=== PATIENT | male | born 1965 | race Two or more races ===

== ENCOUNTER → 2021-02-09 09:17 | Outpatient (BNVA) | payer OTHER, SELFPAY | PROVIDERS: PCP Internal Medicine; Visit Provider Physician Assistant Medical | DX: S39.012A Strain of muscle, fascia and tendon of lower back, initial encounter (principal); S29.012A Strain of muscle and tendon of back wall of thorax, initial encounter; X50.0XXA Overexertion from strenuous movement or load, initial encounter | CPT/HCPCS: 99203 ==

== ENCOUNTER → 2021-02-18 09:48 | Outpatient (BNVA) | payer OTHER, SELFPAY | PROVIDERS: PCP Internal Medicine; Visit Provider Physician Assistant | DX: S39.012D Strain of muscle, fascia and tendon of lower back, subsequent encounter (principal); S29.012D Strain of muscle and tendon of back wall of thorax, subsequent encounter; X58.XXXD Exposure to other specified factors, subsequent encounter | CPT/HCPCS: 99213 ==

== ENCOUNTER 2021-03-07 12:00 | Outpatient (RCR) | payer OTHER, SELFPAY ==
--- NOTE | 2021-02-23 10:52 | MHC.PT.EP ---
[facility] [place] Office [place] Office [address] Lucio Mclean [address] [phone] F: [phone] F: [phone] F: [phone] F: [phone] Physical Therapy Plan of Care Date of Evaluation: Date of Surgery: N/A Diagnosis: lumbar strain Assessment: pt's signs and symptoms consistent w/ lumbar radiculopathy. pt presents to physical therapy with pain, decreased range of motion, decreased strength, impaired functional mobility, impaired postural awareness, and gait deviations. pt is a good candidate for skilled PT due to age, potential remediation of impairments, typical disease/condition progression and prognosis, comorbidities, and motivation. pt would benefit from tailored strengthening and stretching exercise program, functional training, gait training, postural re-training, neuromuscular re-education, modalities as needed for pain, equipment safety demonstration. Frequency and Duration: The patient will be seen 2x/wk for 5 wks Short Term Goals: pt will be I w/ HEP to promote self-management of condition. pt will demo proper sitting posture w/ lumbar roll to promote neutral spine w/ seated ADLs. pt will improve lumbar extension to 100% to improve lifting and reaching overhead activities at work. Installation Drafter Goals: pt will demo proper lifting mechanics from floor to overhead x5 reps w/ 30# object to promote pain-free return to lifting. pt will report <2/10 low back pain w/ seated ADLs to promote return to PLOF. Treatment Plan: Modalities to reduce pain, spasms and effusion. Manual therapy to restore motion and function. Therapeutic exercise to improve strength and flexibility. Neuromuscular re-education for posture and balance. Therapeutic activities to return to functional activities of daily living. Electronically signed by: Fiona Collier PT, DPT Please sign and return to therapist. Thank you for your referral.
--- NOTE | 2021-03-14 17:58 | MHC.PT.DC ---
[facility] [place] Office [place] Office [place] Office [address]clean [address] [phone] F: [phone] F: [phone] F: [phone] F: [phone] Physical Therapy Discharge Report Diagnosis: lumbar strain Date of Surgery: N/A Date of Evaluation: 02/23/21 Date of Discharge: 03/14/21 Treatments to Date: 3 Cancellations to Date: 0 No Shows to Date: 2 Discharge Status: Improved Function Independent with HEP Visit Non-compliance Discharge Summary: The patient has been reporting a significant improvement of back pain and radicular pain with repeated extensions. He has no showed two appointments. Per [facility] policy he is discharged from this physical therapy plan of care due to visit non-compliance. Electronically signed by: Fiona Collier PT, DPT Please sign and return to therapist. Thank you for your referral.
== END 2021-03-14 17:58 | disposition home or self-care (01) ==
LOC: HO.PT 12:00
PROVIDERS: Visit Provider Physician Assistant
DX: M54.9 Dorsalgia, unspecified (principal)
CPT/HCPCS: 97110; 97112; 97162

== ENCOUNTER 2021-04-07 10:00 | Outpatient (RCR) | payer OTHER, SELFPAY ==
--- NOTE | 2021-04-21 11:31 | MHC.PT.DC ---
[facility] [place] Office [place] Office [place] Office [address] Mclean [address] [phone] F: [phone] F: [phone] F: [phone] F: [phone] Physical Therapy Discharge Report Diagnosis: lumbar strain Date of Surgery: N/A Date of Evaluation: 02/23/21 Date of Discharge: 04/21/21 Treatments to Date: 9 Cancellations to Date: 7 No Shows to Date: 2 Discharge Status: Improved Function Independent with HEP Discharge Summary: The patient has reported complete abolition of both back pain and radicular symptoms. He is independent with his home exercise program to manage these symptoms. He has achieved all goals established at the initial evaluation. He is discharged from this physical therapy plan of care to his home exercise program. Electronically signed by: Fiona Collier PT, DPT Please sign and return to therapist. Thank you for your referral.
== END 2021-04-21 11:32 | disposition home or self-care (01) ==
LOC: HO.PT 10:00
PROVIDERS: Visit Provider Physician Assistant
DX: S39.012D Strain of muscle, fascia and tendon of lower back, subsequent encounter (principal)
CPT/HCPCS: 97110; 97112

== ENCOUNTER → 2024-09-03 12:53 | Outpatient (BNVA) | payer OTHER, SELFPAY | PROVIDERS: PCP Internal Medicine; Visit Provider Physician Assistant Medical | DX: S92.902A Unspecified fracture of left foot, initial encounter for closed fracture (principal); W22.8XXA Striking against or struck by other objects, initial encounter | CPT/HCPCS: 73610; 73630; 99213 ==

== ENCOUNTER → 2024-09-09 10:50 | Outpatient (BNVA) | payer OTHER, SELFPAY | PROVIDERS: PCP Internal Medicine; Visit Provider Physician Assistant Medical | DX: S92.355A Nondisplaced fracture of fifth metatarsal bone, left foot, initial encounter for closed fracture (principal); W22.8XXA Striking against or struck by other objects, initial encounter | CPT/HCPCS: 99213 ==

== ENCOUNTER → 2024-09-16 10:49 | Outpatient (BNVA) | payer OTHER, SELFPAY | PROVIDERS: PCP Internal Medicine; Visit Provider Physician Assistant Medical | DX: S92.355D Nondisplaced fracture of fifth metatarsal bone, left foot, subsequent encounter for fracture with routine healing (principal); W22.8XXD Striking against or struck by other objects, subsequent encounter | CPT/HCPCS: 99213 ==

== ENCOUNTER 2024-09-23 10:01 | Outpatient (REF) | payer OTHER, SELFPAY ==
--- NOTE | ~2024-09-23 | XR_ITS ---
EXAMINATION: XR FOOT 3 OR MORE VIEWS LEFT HISTORY: M79.673 - Pain in unspecified foot COMPARISON: Comparison is made with the prior examination dated 09/03/2024. FINDINGS: Three views of the left foot are submitted. Osseous mineralization is normal. Again seen is a transverse fracture of the 5th metatarsal diaphysis. A small amount of callus formation is seen. The fracture line remains visible. The joint spaces are preserved. There is a plantar calcaneal spur. The soft tissues are unremarkable. XR/XR foot LT min 3V IMPRESSION: Fracture of the 5th metatarsal diaphysis without significant change. Electronically signed by: Kofi Barr MD 09/24/2024 07:33 AM EDT
== END 2024-09-23 10:02 | disposition home or self-care (01) ==
LOC: HO.HOSX 10:01
PROVIDERS: Visit Provider Physician Assistant
DX: S92.352A Displaced fracture of fifth metatarsal bone, left foot, initial encounter for closed fracture (principal); W18.40XA Slipping, tripping and stumbling without falling, unspecified, initial encounter; Y93.9 Activity, unspecified; Y92.9 Unspecified place or not applicable; Y99.0 Civilian activity done for income or pay
CPT/HCPCS: 73630; 99202

== ENCOUNTER → 2024-09-23 12:43 | Outpatient (BNV) | payer OTHER, SELFPAY | PROVIDERS: Visit Provider Radiology Diagnostic Radiology | DX: S92.352A Displaced fracture of fifth metatarsal bone, left foot, initial encounter for closed fracture (principal) | CPT/HCPCS: 73630 ==

== ENCOUNTER 2024-09-23 13:50 | Outpatient (AMB) | payer OTHER, SELFPAY ==
--- NOTE | 2024-09-23 14:04 | A.OFFVIS_ITS ---
Vital Signs 09/23/24 14:09 Height 6 ft Weight 250 lb BMI 33.9 Intake Visit Reasons: OV-Left Ankle & Foot DOI-09/03 Intake Note: Keven is a 58 year old male right hand dominate who presents today as a new patient for left ankle and left foot pain, DOI 09/03/24.Patient reported that he was walking down stairs when he hurt his left foot. Patient states that the injury occurred at work and was seen and referred from the work connection. 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 He reported that he was going down stairs and hurt is left foot. Patient states that he does have tingling in the left foot/toes. HPI HPI OV-Left Ankle & Foot DOI-09/03: Details: Mr. Kurtz is a 58-year-old male who presents to the office today accompanied by his for a left foot and ankle injury that occurred on 09/03/2024 while he was at work. He states that he was walking down some stairs and his foot slipped over the edge of a step while moving forward. He felt immediate pain and presented to the emergency department where x-rays were obtained and he was found to have a 5th metatarsal shaft fracture. He was placed into a posterior splint and instructed to follow up with orthopedics outpatient for further evaluation and treatment. 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 No ecchymosis, erythema or edema. Tenderness to palpation over the midshaft 5th metatarsal fracture. Patient is able to demonstrate full ankle dorsiflexion and plantar flexion. He has diffi culty due to pain with pronation and supination. NVI. Office Procedures AMB Fracture Care Fracture Billing Code: Fracture Billing Code Assessment & Plan Assessment & Plan (1) Fracture of fifth metatarsal bone of left foot: Code(s): S92.352A - Displaced fracture of fifth metatarsal bone, left foot, initial encounter for closed fracture Category: Medical Plan Mr. Kurtz is a 58-year-old male who presents to the office today accompanied by his for a left foot and ankle injury that occurred on 09/03/2024 while he was at work. He states that he was walking down some stairs and his foot slipped over the edge of a step while moving forward. He felt immediate pain and presented to the emergency department where x-rays were obtained and he was found to have a 5th metatarsal shaft fracture. He was placed into a posterior splint and instructed to follow up with orthopedics outpatient for further evaluation and treatment. While the office today, the patient was fit for a short walking boot off the shelf. He will wear the boot at all times while ambulating. I did encourage him to come out several times per day to work on ankle range of motion which was demonstrated to him in the office today. This is in hopes to avoid any ankle stiffness. He will remain out of work until follow up. Follow up will be in 4 weeks with repeat x-rays, sooner if needed. X-rays of the left foot which were obtained while in the office today and were reviewed by me, Yin Urrutia PA-C, revealed left 5th midshaft metatarsal fracture with interval healing. Orders: Orders XR foot LT min 3V Today M79.673 - Pain in unspecified foot Coding Level of Care Code New Pt Level 4 (75808) Diagnoses Fracture of fifth metatarsal bone of left foot S92.352A CPT Codes Fracture Care - Fracture Billing Code: Fracture Billing Code ([id number])
[2024-09-23 14:09] VITALS: BMI 33.9
== END 2024-09-23 14:45 | disposition home or self-care (01) ==
LOC: HO.HOS 13:51
PROVIDERS: PCP Internal Medicine; Visit Provider Physician Assistant
DX: S92.352A Displaced fracture of fifth metatarsal bone, left foot, initial encounter for closed fracture (principal)
CPT/HCPCS: 99203

== ENCOUNTER 2024-10-28 10:41 | Outpatient (REF) | payer OTHER, SELFPAY ==
--- NOTE | ~2024-10-28 | XR_ITS ---
EXAMINATION: XR FOOT, LEFT CLINICAL INFORMATION: M79.673 - Pain in unspecified foot COMPARISON: September 23, 2024. TECHNIQUE: AP, lateral, and oblique views of the left foot. FINDINGS: No gross callus formation in the transversely oriented fracture of the proximal diaphysis fifth metatarsal. There is a persistent 2 mm gap between the fragments. Plantar calcaneal spur. Small exostosis at the Achilles tendon torsion. Mild degenerative changes in the proximal and distal interphalangeal joints of the toes. No acute fracture. XR/XR foot LT min 3V IMPRESSION: Nonunion fracture, fifth metatarsal. Plantar calcaneal spur. Mild enthesopathy, Achilles tendon. Electronically signed by: Martinez Palma MD 10/28/2024 02:44 PM EDT
== END 2024-10-28 10:42 | disposition home or self-care (01) ==
LOC: HO.HOSX 10:41
PROVIDERS: Visit Provider Physician Assistant
DX: S92.352K Displaced fracture of fifth metatarsal bone, left foot, subsequent encounter for fracture with nonunion (principal); M79.672 Pain in left foot; W10.9XXA Fall (on) (from) unspecified stairs and steps, initial encounter; Y92.89 Other specified places as the place of occurrence of the external cause; Y93.89 Activity, other specified; Y99.8 Other external cause status
CPT/HCPCS: 73630; 99212

== ENCOUNTER 2024-10-28 14:31 | Outpatient (AMB) | payer OTHER, SELFPAY ==
--- NOTE | 2024-10-28 14:34 | MHC.OFFVIS ---
Intake Visit Reasons: OV-Left Ankle & Foot DOI-09/03 Intake Note: Keven is a 58 year old male who presents today for a follow up of his Left Ankle & Foot WC Injury. While going down the stairs on 09/13/2024 he injured his foot . He was placed in a short walking boot. He remains out of work at this time. Patient mentions that he is still having a burning sensation and his pain is worse at night when he removes the boot. Allergies Penicillins Allergy (Verified 10/28/24 14:41) Rash remicade Allergy (Uncoded 10/28/24 14:41) Fainting HPI HPI OV-Left Ankle & Foot DOI-09/03: Details: Mr. Kurtz is a 58-year-old male who presents to the office today for routine follow-up status post left 5th metatarsal shaft fracture that he sustained on 09/03/2024 while at work. 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 He has been out of work since his last appointment on 09/23/2024. Additionally, he has been in a short walking boot weight-bearing as tolerated. He reports that he has discomfort along the lateral aspect of the foot near the fracture site accompanied by a burning sensation. 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 No ecchymosis, erythema or edema. Tenderness to palpation over the midshaft 5th metatarsal fracture accompanied by a burning sensation. Patient is able to demonstrate full ankle dorsiflexion and plantar flexion without difficulty. He has difficulty due to pain associated with burning at the fracture site with pronation and supination. NVI. Assessment & Plan Assessment & Plan (1) Fracture of fifth metatarsal bone of left foot: Code(s): S92.352A - Displaced fracture of fifth metatarsal bone, left foot, initial encounter for closed fracture Category: Medical Plan Mr. Kurtz is a 58-year-old male who presents to the office today for routine follow-up status post left 5th metatarsal shaft fracture that he sustained on 09/03/2024 while at work. 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 He has been out of work since his last appointment on 09/23/2024. Additionally, he has been in a short walking boot weight-bearing as tolerated. He reports that he has discomfort along the lateral aspect of the foot near the fracture site accompanied by a burning sensation. While the office today, I have recommended that the patient discontinue the walking boot at this time and transition to a supportive walking shoe. Additionally, I placed an order for physical therapy to work with the patient on gentle range of motion and modalities. Patient will remain out of work until follow up. Patient will follow up in 4 weeks, sooner if needed. X-rays were obtained in the office today and reviewed by me, Yin Urrutia PA-C, and reveal normal bony interval healing at the 5th metatarsal shaft fracture. Orders: Orders XR foot LT min 3V Today M79.673 - Pain in unspecified foot Coding Level of Care Code Global (55156) Diagnoses Fracture of fifth metatarsal bone of left foot S92.352A
== END 2024-10-28 15:02 | disposition home or self-care (01) ==
LOC: HO.HOS 14:32
PROVIDERS: PCP Internal Medicine; Visit Provider Physician Assistant
DX: S92.352A Displaced fracture of fifth metatarsal bone, left foot, initial encounter for closed fracture (principal)
CPT/HCPCS: 99213

== ENCOUNTER → 2024-10-28 14:34 | Outpatient (BNV) | payer OTHER, SELFPAY | PROVIDERS: Visit Provider Radiology Diagnostic Radiology | DX: S92.351K Displaced fracture of fifth metatarsal bone, right foot, subsequent encounter for fracture with nonunion (principal); M77.32 Calcaneal spur, left foot | CPT/HCPCS: 73630 ==

== ENCOUNTER 2024-11-25 10:48 | Outpatient (RCR) | payer OTHER, BC, SELFPAY ==
--- NOTE | 2024-11-07 11:00 | MHC.PT.EP ---
[facility] [place] Office [place] Office [place] Office [address] Mclean [address] [phone] F: [phone] F: [phone] F: [phone] F: [phone] Physical Therapy Plan of Care Date of Evaluation: 11/07/24 Date of Surgery: Diagnosis: DISPLACED FX Lt 5TH METATARSAL BONE-> GENTLE ROM AND MODALITIES Assessment: 58 YO MALE REF TO PT S/P Lt NONUNION 5TH METATARSAL FX (9 WKS POST INJURY ON 11/05/24) SUSTAINED AT WORK ON 09/03/24- HE WAS SEEN IN ORTHO, TRANSITIONED GRAD TO WALKING BOOT, WHICH WAS WEANED 09/28/24 AND THE Pt IS NOW REF TO PT.. HE HAS BEEN OOW SINCE INJURY HIS JOB ENTAILS PHYSICALLY DEMANDING TASKS. THE Pt HAS DECR ROM Lt ANKLE, WEAK LEFT INTRINSIC MUSCLES, (+) LUMBOPELVIC ASYM CREATING LLI/ ALTERED GAIT MECH, DECR DOYLE TO PROLONGED WALKING/ STANDING/ACTIVITY DOYLE, AND FLUCTUATING SXS/ DISCOMFORT IN Lt 5TH MET AND CUBOID AREA. THE Pt IS VERY MOTIVATED FOR PT AND ULTIMATELY RTW. HE IS REF TO PT AT THIS TIME FOR GENTLE ROM AND MODALITIES. Frequency and Duration: The patient will be seen 2 x WK x 4 WKS Short Term Goals: DECR Lt LAT FOOT PAIN TO 2-3/10 W REG ADLs IMPROVE Lt ANKLE AROM INITIATE HEP-> CORE STAB, LUMBOPELVIC SYMM EFFICIENT GAIT MECHANICS LEVEL AND STAIRS Correction Goals: INDEP HEP AND SELF SX MGMT TECHN-> WFL STAB/ PROPR/ STRENGTH Lt LE Pt SLS Lt x 30 SEC IMPROVED LEFI, AT EVAL37/80 Pt RTW, CLEARED BY ORTHO Treatment Plan: Modalities to reduce pain, spasms and effusion. Manual therapy to restore motion and function. Therapeutic exercise to improve strength and flexibility. Neuromuscular re-education for posture and balance. Therapeutic activities to return to functional activities of daily living. Electronically signed by: MARIA R POPE, PT Please sign and return to therapist. Thank you for your referral.
--- NOTE | 2024-11-25 12:44 | MHC.PT.DC ---
[facility] [place] Office [place] Office [place] Office [address] Lucio Mclean [address] [phone] F: [phone] F: [phone] F: [phone] F: [phone] Physical Therapy Discharge Report Diagnosis: DISPLACED FX Lt 5TH METATARSAL BONE-> GENTLE ROM AND MODALITIES Date of Surgery: Date of Evaluation: 11/07/24 Date of Discharge: 11/25/24 Treatments to Date: 4 Cancellations to Date: 1 No Shows to Date: Discharge Status: Achieved Goals Improved Function Independent with HEP Discharge Summary: DAMI HAS MET HIS PT GOALS AT THIS TIME- HIS LEFI SCORE AT EVAL WAS 37/80 AND TODAY AT D/C, 48/80. HE DENIED ANY PAIN IN HIS Lt FOOT AND ANKLE (ONLY SXS WERE IN HIS Rt KNEE DUE TO HIS OA, PER Pt). HE IS MOTIVATED TO RTW AND IS INDEP AND COMPLIANT W HIS HEP. THE Pt MALICKON SLS Lt x 15 SEC (AT EVAL, 9 SEC) Electronically signed by: MARIA R POPE,PT Please sign and return to therapist. Thank you for your referral.
== END 2024-11-25 12:45 | disposition home or self-care (01) ==
LOC: HO.PT 10:48
PROVIDERS: Visit Provider Physician Assistant
DX: S92.352D Displaced fracture of fifth metatarsal bone, left foot, subsequent encounter for fracture with routine healing (principal)
CPT/HCPCS: 97110; 97162; 97530

== ENCOUNTER 2024-11-27 08:38 | Outpatient (REF) | payer OTHER, BC, SELFPAY ==
--- NOTE | ~2024-11-27 | XR_ITS ---
EXAMINATION: XR FOOT 3 OR MORE VIEWS LEFT HISTORY: M79.673 - Pain in unspecified foot COMPARISON: Comparison is made with the prior examination dated 10/28/2024. FINDINGS: Three views of the left foot are submitted. Osseous mineralization is normal. Again seen is a fracture of the proximal 5th metatarsal shaft. The fracture line remains visible. The joint spaces are preserved. There is a plantar calcaneal spur. The soft tissues are unremarkable. XR/XR foot LT min 3V IMPRESSION: Fracture of the proximal 5th metatarsal shaft without significant change. Electronically signed by: Kofi Barr MD 11/27/2024 01:39 PM EDT
--- OUTSIDE RECORDS SUMMARY | 2024-11-28 08:53 | XMS_ITS | Encounter Summary ---
Author Organization [facility] Address [address] [place] [address] Care Team Providers Care Chronic Condition Nurse Name Role Phone Name, Semaj BRENNER Primary Care Provider Unavailabl e Community, Pcp [facility] Encounter Details Date Type Department Care Team Description 12/09/2014 Potline Monitor Report Medical Records [address] [place] [id number] Kermit Webber MD Social History Tobacco Use Types Packs/Day Years Used Date Smoking Tobacco: Never Smokeless Tobacco: Never Alcohol Use Standard Drinks/Week Comments No 0 (1 standard drink = 0.6 oz pur e alcohol) Sex Assigned at Date Recorded Not on file documented as of this encounter Plan of Treatment Not on file documented as of this encounter Visit Diagnoses Not on filedocumented in this encounter Care Teams Chronic Condition Nurse Relationship Specialty Start Date End Date Name, MD Semaj PCP - General Internal Medicine 04/26/11 05/20/15 Community, Pcp PCP - General Internal Medicine 05/21/15 documented as of this encounter
--- OUTSIDE RECORDS SUMMARY | 2024-11-28 08:53 | XMS_ITS | Encounter Summary ---
Author Organization [facility] Address [address] [place] [address] Phone Care Team Providers Care Field Observer Name Role Phone Joe Mosquera MD Primary Care Provider U navailable Encounter Details Date Type Department Care Team (Late st Contact Info) Description 01/22/2019 Procedure Pass [facility] Endoscopy Admitting Dept Virtual Department [address] [place] [address] Social History Tobacco Use Types Packs/Day Years Used Date Smoking Tobacco: Never Alcohol Use Standard Drinks/Week Comments No 0 (1 standard drink = 0.6 oz pur e alcohol) Sex and Gender Information Value Date Recorded Sex Assigned at Male 11/11/2017 10:34 PM EDT Legal Sex Male 9:37 PM EDT Gender Identity Male 11/11/2017 10:34 PM EDT Sexual Orientation Not on file documented as of this encounter Plan of Treatment Not on file documented as of this encounter Visit Diagnoses Not on filedocumented in this encounter Care Teams Field Observer Relationship Specialty Start Date End Date Joe Mosquera MD PCP - General Internal Medicine 11/11/17 documented as of this encounter Additional Source Comments The information contained in this document represents components of the legal health record. It is not the complete legal health record.[facility]
== END 2024-11-27 08:39 | disposition home or self-care (01) ==
LOC: HO.HOSX 08:38
PROVIDERS: Visit Provider Physician Assistant
DX: S92.352D Displaced fracture of fifth metatarsal bone, left foot, subsequent encounter for fracture with routine healing (principal); M79.672 Pain in left foot; W10.9XXD Fall (on) (from) unspecified stairs and steps, subsequent encounter
CPT/HCPCS: 73630; 99212

== ENCOUNTER 2024-11-27 10:18 | Outpatient (AMB) | payer OTHER, SELFPAY ==
--- NOTE | 2024-11-27 10:44 | MHC.OFFVIS ---
Intake Visit Reasons: OV-Left Ankle & Foot DOI-09/03 Intake Note: Keven is a 58 year old male who presents today for a follow up visit for his fracture of fifth metatarsal bone of left foot DOI: 09/03/24 s/p fall down stairs. At last visit it was recommended that the patient discontinue the walking boot at this time and transition to a supportive walking shoe. He was also referred to physical therapy for gentle range of motion exercises. Patient reports he is feeling better but he notices some burning sensation when he over does it. Allergies Penicillins Allergy (Verified 11/27/24 10:46) Rash remicade Allergy (Uncoded 10/28/24 14:41) Fainting HPI HPI OV-Left Ankle & Foot DOI-09/03: Details: Mr. Kurtz who presents to the office today for routine follow-up status post left 5th metatarsal shaft fracture. Date of injury was 09/03/2024 after a fall down stairs. At his last appointment he was recommended to discontinue the walking boot and transition to a supportive walking shoe. Additionally, he was referred to physical therapy. He reports that he has been attending physical therapy and has been noticing improvement in his pain. He is looking to return back to work full-time regular duty beginning Sunday. 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 No ecchymosis, erythema or edema. No tenderness to palpation over the midshaft 5th metatarsal fracture. Patient is able to demonstrate full ankle dorsiflexion, plantar flexion, pronation and supination without difficulty. NVI. Assessment & Plan Assessment & Plan (1) Fracture of fifth metatarsal bone of left foot: Code(s): S92.352A - Displaced fracture of fifth metatarsal bone, left foot, initial encounter for closed fracture Category: Medical Plan Mr. Kurtz who presents to the office today for routine follow-up status post left 5th metatarsal shaft fracture. Date of injury was 09/03/2024 after a fall down stairs. At his last appointment he was recommended to discontinue the walking boot and transition to a supportive walking shoe. Additionally, he was referred to physical therapy. He reports that he has been attending physical therapy and has been noticing improvement in his pain. He is looking to return back to work full-time regular duty beginning Sunday. While in the office today, the patient reports that his pain has improved and he continues to attend physical therapy. He has no tenderness to palpation over the fracture site. I have given him a work release note to begin on Sunday12-01-24 to return back to work full-time regular duty. He will follow up with Orthopedics p.r.n., sooner if needed. X-rays of the left foot which were obtained while in the office today and were reviewed by me, Yin Urrutia PA-C, revealed routine healing 5th metatarsal shaft fracture. Orders: Orders XR foot LT min 3V Today M79.673 - Pain in unspecified foot Coding Level of Care Code Global (42635) Diagnoses Fracture of fifth metatarsal bone of left foot S92.352A
--- OUTSIDE RECORDS SUMMARY | 2024-11-27 11:24 | XMS_ITS | Clinical Summary ---
Author Organization [facility] Address [address] [place] [phone] Phone Care Team Providers Care Spud Grader Name Role Phone Joe Mosquera MD Primary Care Provider U navailable Allergies Active Allergy Reactions Criticality Noted Date Comments Penicillins 11/11/2017 Infliximab 07/20/2020 Medications predniSONE (DELTASONE) 5 MG tablet Take 5 mg by mouth daily. Active traMADol (ULTRAM) 50 mg tablet Take 1 tablet (50 mg total) by mouth every 6 (six) hours as needed for pain (specific location in comments). 10 tablet 11/12/2017 Active etanercept (ENBREL) 25 mg (1 mL) injection weekly Active methotrexate sodium, PF, 25 mg/mL injection Inject 12.5 mg into the vein once. Active Immunizations Immunization Administration Dates Next Due COVID-19 (Pre-02/05) Pfizer Vaccine, mRNA, PF ,09/01/2020 Social History Tobacco Use Types Packs/Day Years Used Date Smoking Tobacco: Never Smokeless Tobacco: Never Alcohol Use Standard Drinks/Week Comments No 0 (1 standard drink = 0.6 oz pur e alcohol) Education Answer Date Recorded Are you interested in more education? Not on jenelle e 08/11/2022 Are you concerned about learning? Not on file 08/11/2022 No 08/11/2022 No 08/11/2022 Digital Access Answer Date Recorded No 09/09/2022 No 09/09/2022 No 09/09/2022 Reliable internet access at home? Not on file 09/09/2022 Device with a working camera? Not on file Sex and Gender Information Value Date Recorded Sex Assigned at Male 11/11/2017 10:34 PM EDT Legal Sex Male 9:37 PM EDT Gender Identity Male 11/11/2017 10:34 PM EDT Sexual Orientation Not on file Last Filed Vital Signs Vital Sign Reading Time Taken Comments Blood Pressure 124/67 07/22/2020 8:15 AM EDT Pulse 83 07/22/2020 7:17 AM EDT Temperature 36.1 C (97 F) 07/22/2020 7:54 AM EDT Respiratory Rate 13 07/22/2020 7:54 AM EDT Oxygen Saturation 97% 07/22/2020 8:15 AM EDT Inhaled Oxygen Concentration - - Weight 113.4 kg (250 lb) 12/01/2021 10:58 AM EDT Height 182.9 cm (6') 12/01/2021 10:58 AM EDT Body Mass Index 33.91 12/01/2021 10:58 AM EDT Plan of Treatment Health Maintenance Due Date Last Done Comments LIPID PANEL 1965 DEPRESSION SCREENING 1979 HEPATITIS C SCREENING 12/04/1985 HIV ONE-TIME SCREENING (18-6 5 YEARS) 12/04/1985 PNEUMOCOCCAL VACCINES (50+ years) (1 of 2 - PCV) 12/04/1986 ZOSTER VACCINES (1 of 2) 12/04/1986 SCREENING FOR DIABETES 12/04/2002 COLOGUARD 12/04/2012 FIT TEST 12/04/2012 FOBT 12/04/2012 SIGMOIDOSCOPY 12/04/2012 VIRTUAL COLONOSCOPY 12/04/2012 COVID-19 VACCINE (3 - Pfizer risk series) 10/20/2020 09/22/2020, 09/01/2020 Adult Td,Tdap Booster 03/16/2021 03/16/2011 COLONOSCOPY 07/22/2030 07/22/2020 COLORECTAL CANCER SCREENING 07/22/2030 SMOKING STATUS SCREENING (On ce After 26 Yrs) Completed 07/22/2020 HEPATITIS A VACCINES Aged Out No long er eligible based on patient's age to complete this topic HIB VACCINES Aged Out No longer eligi ble based on patient's age to complete this topic MENINGOCOCCAL VACCINES (ACWY) Aged Out No longer eligible based on patient's age to complete this topic MENINGOCOCCAL VACCINES (B) Aged Out N o longer eligible based on patient's age to complete this topic Medical Devices Implanted Type Area Surveillance Technician Device Identifier Shelf Expiration Date Model / Serial / Lot Right Foot Plate Procedures Procedure Name Priority Date/Time Associated Diagnosis Comments ENDOSCOPY, COLON 07/22/2020 7:12 AM EDT from Last 3 Months or Most Recently Relevant to Health Maintenance Results * ENDOSCOPY, COLON (07/22/2020 7:12 AM EDT) Narrative Transcriptions Antolin Lawler MD - 07/22/2020 7:12 AM EDT Patient Name: Keven Kurtz Attending MD:: ANTOLIN LAWLER MD Procedure Date: 07/22/2020 7:12 AM Date of : 1965 Age: 54 Admit Type: Outpatient Gender: Male Room: [place] [address] Referring MD: JOE MOSQUERA Exam Type: Colonoscopy Indications: Screening for colorectal malignant neoplasm, This is the patient's first colonoscopy Medications: Monitored Anesthesia Care Procedure: Informed consent was obtained from the patient after discussion of the indications, limitations, alternatives, benefits, and risks of the procedure. Risks specifically discussed include but are not limited to medication reactions, missed lesions, bleeding, perforation, or the need for emergentsurgery. Throughout the procedure, the patient's bloodpressure, pulse, end-tidal CO2, and oxygen saturations were monitored continuously. The Olympus adult variable colonoscope [id number] #7was introduced through the anus and advanced to thececum, identified by the appendiceal orifice. Thecolonoscopy was performed without difficulty. The patienttolerated the procedure well. The quality of the bowel preparation was good. Complications: No immediate complications. Estimated blood loss:None. Findings: The perianal and digital rectal examinations were normal. Multiple small-mouthed diverticula were found in the sigmoid colon. The rectum, recto-sigmoid colon, sigmoid colon, descending colon, splenic flexure, transverse colon, hepatic flexure, ascending colon, cecum, appendiceal orifice, ileocecal valve, rectum (on retroflexion)and ascending colon (on retroflexion) appeared normal. Impression: - Diverticulosis in the sigmoid colon. - The rectum, recto-sigmoid colon, sigmoid colon, descending colon, splenic flexure, transverse colon, hepatic flexure, ascending colon, cecum, appendiceal orifice and ileocecal valve are normal. - No specimens collected. Recommendation: - Discharge patient to home. - High fiber diet. - Continue present medications. - Repeat colonoscopy in 10 years for screeningpurposes. ANTOLIN LAWLER MD 07/22/2020 7:54:02 AM This report has been signed electronically. Number of Addenda: 0 Note Initiated On: 07/22/2020 7:12 AM Procedure Code(s): --- Professional --- 58962, Colonoscopy, flexible; diagnostic, including collection of specimen(s) by brushing or washing, when performed (separateprocedure) --- Technical --- 18042, Colonoscopy, flexible; diagnostic, including collection of specimen(s) by brushing or washing, when performed (separateprocedure) Diagnosis Code(s): --- Professional --- Z12.11, Encounter for screening for malignantneoplasm of colon K57.30, Diverticulosis of large intestine without perforation or abscess without bleeding --- Technical --- Z12.11, Encounter for screening for malignantneoplasm of colon K57.30, Diverticulosis of large intestine without perforation or abscess without bleeding CPT copyright 2018 [employer]. All rights reserved. The codes documented in this report are preliminary and upon armature tester reviewmay be revised to meet current compliance requirements. Procedure Date: 07/22/2020 7:12:[address] [place] [id number] Joe Mosquera MD GI PROCEDURE ORDERABLES Final Result from Last 3 Months or Most Recently Relevant to Health Maintenance Insurance BLUE CROSS OUT OF STATE PPO BLUE CROSS OUT OF STATE PPO BLUE CROSS OUT OF STATE PPO BLUE CROSS OUT OF STATE PPO BLUE CROSS OUT OF STATE PPO BLUE CROSS OUT OF STATE PPO BLUE CROSS OUT OF STATE PPO BLUE CROSS OUT OF STATE PPO BLUE CROSS OUT OF STATE PPO Member Subscriber Plan / Payer (Ef fective 2018-Present) Name:Keven Kurtz Relation to Subscriber:Self Name:Keven Kurtz Payer ID:[id number] (NA) Type:PPO Address: [facility] [id number] [place] [id number] Care Teams Spud Grader Relationship Specialty Start Date End Date Joe Mosquera MD PCP - General Internal Medicine 11/11/17 Additional Source Comments The information contained in this document represents components of the legal health record. It is not the complete legal health record.[facility]
== END 2024-11-27 11:02 | disposition home or self-care (01) ==
LOC: HO.HOS 10:29
PROVIDERS: Visit Provider Physician Assistant
DX: S92.352A Displaced fracture of fifth metatarsal bone, left foot, initial encounter for closed fracture (principal)
CPT/HCPCS: 99213

== ENCOUNTER → 2024-11-27 10:38 | Outpatient (BNV) | payer OTHER, SELFPAY | PROVIDERS: Visit Provider Radiology Diagnostic Radiology | DX: S92.352A Displaced fracture of fifth metatarsal bone, left foot, initial encounter for closed fracture (principal) | CPT/HCPCS: 73630 ==